=== PATIENT | male | born 1940 ===

== ENCOUNTER 2018-03-05 14:49 | Outpatient (REF) | payer MEDICARE, SELFPAY ==
[2018-03-05 20:25] LABS: Anion Gap 12.5 mmol/L (3-11); BUN 18 mg/dL (7-18); CO2 28.5 mmol/L (21.0-32.0); CREATININE 1.11 mg/dL (0.70-1.30); Calcium 8.7 mg/dL (8.5-10.1); Chloride 100 mmol/L (98-107); Glucose 108 mg/dL (70-100); Potassium 4.5 mmol/L (3.5-5.1); Sodium 141 mmol/L (136-145)
[2018-03-05 20:30] LABS: Uric Acid 6.8 mg/dL (3.5-7.2)
[2018-03-05 22:25] LABS: ESR 21 MM/HR (1-20)
[2018-03-06 16:28] LABS: CRP, High Sensitivity 3.06 mg/L
== END 2018-03-05 15:09 ==
LOC: NCHCN 14:49
PROVIDERS: PCP Internal Medicine; Visit Provider Internal Medicine
DX: G20 Parkinson's disease (principal); I10 Essential (primary) hypertension; K21.9 Gastro-esophageal reflux disease without esophagitis; Z87.2 Personal history of diseases of the skin and subcutaneous tissue
CPT/HCPCS: 80048; 85652; 86141; 84550

== ENCOUNTER 2020-01-13 18:19 | Outpatient (REF) | payer MEDICARE, SELFPAY ==
[2020-01-13 19:15] LABS: HCT 39.9 % (40.0-50.0); HGB 13.3 g/dL (13.5-17.5); MCH 30.5 pg (27.0-33.0); MCHC 33.3 % (32.0-36.0); MCV 91.5 fL (80-95); MPV 10.9 fL (8.0-11.0); Platelet Count 132 10^3/uL (130-400); RBC 4.36 10^6/uL (4.36-5.78); RDW 12.9 % (11.8-14.1); RDW-SD 43.2 fL; WBC 5.28 10^3/uL (4.4-10.8)
[2020-01-13 19:50] LABS: BUN 18 mg/dL (7-18); Calcium 9.1 mg/dL (8.5-10.1); Chloride 104 mmol/L (98-107); Glucose 99 mg/dL (74-106); Potassium 4.2 mmol/L (3.5-5.1); Sodium 141 mmol/L (136-145)
== END 2020-01-13 18:39 ==
LOC: NCHCN 18:19
PROVIDERS: PCP Internal Medicine; Visit Provider Internal Medicine
DX: I10 Essential (primary) hypertension (principal); F32.9 Major depressive disorder, single episode, unspecified; G44.209 Tension-type headache, unspecified, not intractable; G20 Parkinson's disease; M48.062 Spinal stenosis, lumbar region with neurogenic claudication
CPT/HCPCS: 80048; 85027; 84443

== ENCOUNTER 2020-12-28 15:03 | Outpatient (REF) | payer MEDICARE, SELFPAY ==
[2020-12-28 19:16] LABS: HCT 41.2 % (40.0-50.0); HGB 13.5 g/dL (13.5-17.5); MCH 30.5 pg (27.0-33.0); MCHC 32.8 % (32.0-36.0); MCV 93.2 fL (80-95); MPV 10.4 fL (8.0-11.0); Platelet Count 152 10^3/uL (130-400); RBC 4.42 10^6/uL (4.36-5.78); RDW 13.5 % (11.8-14.1); RDW-SD 46.1 fL; WBC 5.74 10^3/uL (4.4-10.8)
[2020-12-28 19:57] LABS: Anion Gap 6.3 mmol/L (3-11); BUN 16 mg/dL (7-18); CO2 30.7 mmol/L (21.0-32.0); CREATININE 1.1 mg/dL (0.70-1.30); Calcium 8.7 mg/dL (8.5-10.1); Chloride 108 mmol/L (98-107); Glucose 109 mg/dL (74-106); Potassium 4.1 mmol/L (3.5-5.1); Sodium 145 mmol/L (136-145)
== END 2020-12-28 15:04 | disposition home or self-care (01) ==
LOC: NCHCN 15:03
PROVIDERS: PCP Internal Medicine; Visit Provider Internal Medicine
DX: I10 Essential (primary) hypertension (principal); G20 Parkinson's disease; I69.959 Hemiplegia and hemiparesis following unspecified cerebrovascular disease affecting unspecified side; M48.062 Spinal stenosis, lumbar region with neurogenic claudication
CPT/HCPCS: 80048; 85027

== ENCOUNTER 2021-01-22 18:49 | Outpatient (REF) | payer MEDICARE, SELFPAY ==
[2021-01-24 11:42] LABS: COVID-19 RT-PCR UVMMC Result Positive (Negative)
== END 2021-01-22 18:50 | disposition home or self-care (01) ==
LOC: NCHCN 18:49
PROVIDERS: PCP Internal Medicine; Visit Provider Internal Medicine
DX: Z20.822 Contact with and (suspected) exposure to COVID-19 (principal); J18.9 Pneumonia, unspecified organism
CPT/HCPCS: U0003; U0005